=== PATIENT | female | born 1985 | race American Indian/Alaskan Native ===

== ENCOUNTER 2020-04-14 08:00 | Emergency (ER) | payer SELFPAY ==
[2020-04-14] MEDS ORDERED: HYDROcodone/ACETAMINOPHEN 10-325MG TAB PO ONE ×2 (11:40→11:50)
[2020-04-14] MEDS ORDERED: cefTRIAXone/NS 1 GM/50 ML 1 GM/50 ML BAG IV ONE ×2 (11:42→12:17)
[2020-04-14] MEDS ORDERED: VANCOMYCIN/NS 1 GM/250 ML 1 GM/250 ML BAG IV ONE (11:42)
[2020-04-14] MEDS ORDERED: ONDANSETRON 4 MG/2 ML INJ IV ONE (11:42)
[2020-04-14] MEDS ORDERED: MORPHINE 4 MG/1 ML INJ IV ONE (11:42)
[2020-04-14] MEDS ORDERED: SODIUM CHLORIDE 0.9% 1000 ML 1,000 ML IV ONE (11:42)
[2020-04-14] MEDS ORDERED: ONDANSETRON 4 MG/2 ML INJ ONE (12:15)
[2020-04-14] MEDS ORDERED: SODIUM CHLORIDE 0.9% 1000 ML 1,000 ML ONE (12:16)
[2020-04-14] MEDS ORDERED: MORPHINE 4 MG/1 ML INJ ONE (12:16)
--- NOTE | 2020-04-14 12:27 | XRay Report ---
RIGHT HAND 3 VIEW(S) INDICATION / CLINICAL INFORMATION: finger pain and swelling COMPARISON: None available. FINDINGS: BONES / JOINT(S): Mildly comminuted fracture of the mid to distal portion of the proximal phalanx of the right ring finger. Fracture does not definitely extend into the PIP joint. No other fracture. No significant arthritis. SOFT TISSUES: Moderate soft tissue swelling of the right ring finger. ADDITIONAL FINDINGS: None. Signer Name: Brock Tenorio MD Signed: 04/14/2020 12:26 PM Workstation Name: [id number]
--- NOTE | 2020-04-14 13:32 | Emergency Department Report ---
ED Upper Extremity Inj HPI - General Chief Complaint: Extremity Injury, Upper Stated Complaint: FINGER INJURY Time Seen by Provider: 04/14/20 11:40 Source: patient Mode of arrival: Ambulatory Limitations: No Limitations - History of Present Illness Initial Comments: This is a 35-year-old female nontoxic, well nourished in appearance, no acute signs of distress presents to the ED with c/o of right ring finger pain 1 week. Patient unsure of the mechanism of injury. Patient denies any other trauma, pain, or injuries. Patient denies any numbness, tingling, fever, chills, nausea, vomiting, chest pain, shortness of breath, headache, stiff neck. Patient denies any joint swelling or joint redness. Patient stated has some decreased range of motion due to pain. Patient denies any allergies or significant past medical history. MD Complaint: Injury to:: right, finger -: days(s) Other Extremity Injury: Fingers: Right Severity scale (0 -10): 8 Improves With: immobilization Worsens With: movement of extremity Associated Symptoms: denies other symptoms. denies: weakness, numbness, neck pain, suspects foreign body, nausea/vomiting, heard/felt popping sensat - Related Data Home Medications Medication Instructions Recorded Confirmed Last Taken Ferrous Sulfate [Feosol] 325 mg PO QDAY 05/07/16 05/07/16 05/05/16 18:00 1 Hydrochlorothiazide [HCTZ] 50 mg PO QDAY 05/07/16 05/07/16 05/05/16 18:00 1 Previous Rx's Medication Instructions Recorded Last Taken Type Ibuprofen [Motrin 600 MG tab] 600 mg PO Q8H PRN #30 tablet 05/08/16 Unknown Rx NIFEdipine XL [Procardia Xl] 30 mg PO QDAY #30 tab 05/08/16 Unknown Rx labetaloL [Labetalol 200mg TAB] 200 mg PO BID #60 tablet 05/08/16 Unknown Rx labetaloL [Labetalol 200mg TAB] 300 mg PO BID #60 tablet 05/08/16 Unknown Rx Acetaminophen/Codeine [Tylenol 1 tab PO Q6H PRN #12 tab 04/14/20 Unknown Rx /Codeine # 3 tab] Allergies Allergy/AdvReac Type Severity Reaction Status Date / Time No Known Allergies Allergy Verified 04/14/20 08:10 ED Review of Systems ROS: Stated complaint: FINGER INJURY Other details as noted in HPI Comment: All other systems reviewed and negative Constitutional: denies: chills, fever Eyes: denies: eye pain, eye discharge, vision change ENT: denies: ear pain, throat pain Respiratory: denies: cough, shortness of breath, wheezing Cardiovascular: denies: chest pain, palpitations Endocrine: no symptoms reported Gastrointestinal: denies: abdominal pain, nausea, diarrhea Genitourinary: denies: urgency, dysuria, discharge Musculoskeletal: denies: back pain, joint swelling, arthralgia Skin: denies: rash, lesions Neurological: denies: headache, weakness, paresthesias Psychiatric: denies: anxiety, depression Hematological/Lymphatic: denies: easy bleeding, easy bruising ED Past Medical Hx - Past Medical History Hx Hypertension: Yes Hx Congestive Heart Failure: No Hx Diabetes: No Hx Deep Vein Thrombosis: No Hx Renal Disease: No Hx Sickle Cell Disease: No Hx Seizures: No Hx Asthma: No Hx COPD: No - Surgical History Past Surgical History?: No - Social History Smoking Status: Never Smoker Substance Use Type: None - Medications Home Medications: Home Medications Medication Instructions Recorded Confirmed Last Taken Type Ferrous Sulfate [Feosol] 325 mg PO QDAY 05/07/16 05/07/16 05/05/16 18:00 History 1 Hydrochlorothiazide [HCTZ] 50 mg PO QDAY 05/07/16 05/07/16 05/05/16 18:00 History 1 Ibuprofen [Motrin 600 MG tab] 600 mg PO Q8H PRN #30 tablet 05/08/16 Unknown Rx NIFEdipine XL [Procardia Xl] 30 mg PO QDAY #30 tab 05/08/16 Unknown Rx labetaloL [Labetalol 200mg TAB] 200 mg PO BID #60 tablet 05/08/16 Unknown Rx labetaloL [Labetalol 200mg TAB] 300 mg PO BID #60 tablet 05/08/16 Unknown Rx Acetaminophen/Codeine [Tylenol 1 tab PO Q6H PRN #12 tab 04/14/20 Unknown Rx /Codeine # 3 tab] ED Physical Exam - General Limitations: No Limitations General appearance: alert, in no apparent distress - Head Head exam: Present: atraumatic, normocephalic - Eye Eye exam: Present: normal appearance - Neck Neck exam: Present: normal inspection, full ROM. Absent: tenderness, meningismus, lymphadenopathy - Respiratory Respiratory exam: Absent: respiratory distress - Cardiovascular Cardiovascular Exam: Present: regular rate - Extremities Exam Extremities exam: Present: full ROM, tenderness, normal capillary refill, joint swelling. Absent: calf tenderness - Expanded Upper Extremity Exam Right General: Present: normal inspection Shoulder Exam: Present: normal inspection, full ROM. Absent: tenderness, swelling Upper Arm exam: Present: normal inspection, full ROM. Absent: tenderness, swe lling Elbow exam: Present: normal inspection, full ROM. Absent: tenderness, swelling Forearm Wrist exam: Present: normal inspection, full ROM. Absent: tenderness, swelling, abrasion, laceration, ecchymosis, deformity, crepidus, dislocation, erythema, tenderness over anatomical snuff box, pain with axial thumb loading Hand Wrist exam: Present: full ROM, tenderness, swelling, ecchymosis. Absent: abrasion, laceration, deformity, crepidus, dislocation, erythema, amputation, nail avulsion, subungual hematoma Vascular: Present: normal capillary refill. Absent: vascular compromise (Neurovascular within normal limits) - Back Exam Back exam: Present: normal inspection, full ROM. Absent: tenderness, CVA tenderness (R), CVA tenderness (L), muscle spasm, paraspinal tenderness, vertebral tenderness, rash noted - Neurological Exam Neurological exam: Present: alert, oriented X3, normal gait - Psychiatric Psychiatric exam: Present: normal affect, normal mood - Skin Skin exam: Present: warm, dry, intact, normal color. Absent: rash ED Course Vital Signs 04/14/20 08:14 Temperature 98.1 F Pulse Rate 87 Respiratory 18 Rate Blood Pressure 184/126 O2 Sat by Pulse 100 Oximetry - Reevaluation(s) Reevaluation #1: 04/14/20 13:43 Patient is speaking in full sentences with no signs of distress noted. ED Medical Decision Making - Radiology Data Referring Physician: FATUMA OVIEDO Patient Name: TAYLOR HO Date of : 1985 Sex: Female Report Date: 2020-04-14 Report Status: Finalized [facility] [address] [place] [address] XRay Report Signed Patient: TAYLOR HO MR#: [id number] : 1985 Acct:[id number] Age/Sex: 35 / F ADM Date: 04/14/20 Loc: ED Attending Dr: Ordering Physician: FATUMA OVIEDO NP Date of Service: 04/14/20 Procedure(s): XR hand 3+V RT Accession Number(s): [id number] cc: FATUMA OVIEDO NP Fluoro Time In Minutes: RIGHT HAND 3 VIEW(S) INDICATION / CLINICAL INFORMATION: finger pain and swelling COMPARISON: None available. FINDINGS: BONES / JOINT(S): Mildly comminuted fracture of the mid to distal portion of the proximal phalanx of the right ring finger. Fracture does not definitely extend into the PIP joint. No other fracture. No significant arthritis. SOFT TISSUES: Moderate soft tissue swelling of the right ring finger. ADDITIONAL FINDINGS: None. Signer Name: Brock Tenorio MD Signed: 04/14/2020 12:26 PM Workstation Name: [id number] Transcribed By: DT Dictated By: Cecil Tenorio MD Electronically Authenticated By: Cecil Tenorio MD Signed Date/Time: 04/14/201225 DD/ TD/TT: - Medical Decision Making This is a 35-year-old female that presents with right finger fracture. Patient is stable and was examined by me. I referred patient to an orthopedic doctor for further evaluation. X-ray has been obtained and dictated by the radiologist. Patient is notified of the x-ray report with noted by the patient. Patient received a frog finger splint. Post splint assessment: neurovasular intact; normal cap refill <2 second; normal sensation; denies decreaed sensation; normal ROM of digits.. Patient was instructed to RICE therapy. Patient received [place] for pain and stated that family member will drive the patient home after discharge due to possible drowsiness. Patient is discharged with Tylenol #3. At time of discharge, the patient does not seem toxic or ill in appearance. No acute signs of distress noted. Patient agrees to discharge treatment plan of care. No further questions noted by the patient. Critical care attestation.: If time is entered above; I have spent that time in minutes in the direct care of this critically ill patient, excluding procedure time. ED Disposition Clinical Impression: Finger fracture, right Qualifiers: Encounter type: initial encounter Finger: ring finger Fracture type: closed Phalanx: proximal Fracture alignment: nondisplaced Qualified Code(s): S62.644A - Nondisplaced fracture of proximal phalanx of right ring finger, initial en counter for closed fracture Disposition: - TO HOME OR SELFCARE Is pt being admited?: No Does the pt Need Aspirin: No Condition: Stable Instructions: Finger Fracture, Adult, Cast or Splint Care, Adult, [id number], Acetaminophen; Oxycodone capsules Additional Instructions: Follow-up with a orthopedic doctor in 3-5 days or if symptoms worsen and continue return to emergency room as soon as possible. No physical activity that extremity until cleared by orthopedic doctor Prescriptions: Acetaminophen/Codeine [Tylenol /Codeine # 3 tab] 1 tab PO Q6H PRN #12 tab PRN Reason: Pain , Severe (7-10) Referrals: PRIMARY MD DHAVAL [Primary Care Provider] - 3-5 Days NIKI FIGUEROA MD [Staff Physician] - 3-5 Days Forms: Work/School Release Form(ED)
[2020-04-14 14:57] VITALS: BP 170/97
== END 2020-04-14 14:57 | disposition home or self-care (01) ==
LOC: ED 08:00
DX: S62.644A Nondisplaced fracture of proximal phalanx of right ring finger, initial encounter for closed fracture (principal); I10 Essential (primary) hypertension; Z79.899 Other long term (current) drug therapy; X58.XXXA Exposure to other specified factors, initial encounter; Y93.89 Activity, other specified; Y92.89 Other specified places as the place of occurrence of the external cause; Y99.8 Other external cause status
CPT/HCPCS: 73130; 96365; 96366; 96375; 99283; J0696; J2270; J2405; J7030